=== PATIENT | male | born 1945 | race Caucasian/White ===

== ENCOUNTER 2016-09-01 08:25 | Emergency (ER) | payer OTHER, MEDICARE ==
--- NOTE | 2016-09-01 08:59 | PDOC ---
Gen Adult / Medical Screen HPI - General Chief Complaint: General Medical Stated Complaint: Vomiting Date Seen by Provider: 09/01/16 Time Seen by Provider: 08:54 Source: POSITIVE: Patient, Spouse Exam Limitations: POSITIVE: No limitations Nurse's Notes Reviewed & Considered: Yes - Indicators Temperature Between 95 and 101 Degrees: Yes Respirations Between 12 and 20: Yes Blood Pressure Between 100-165 (sys) and 60-100 (fatima): Yes Pulse Range Between 60-105 (100 for age > 60 years): No (45 bpm) Severe Pain (Greater than 5/10 Reported): No Chest or Abdominal Pain: Yes (crampy abd pain and chest discomfort) Inability to Walk: No Pt Reports Active High Risk Cond. (TB/Hepatitis/HIV/Chemo): No Abnormal Mental Status: No - History of Present Illness Initial Comments: Patient comes in today with chief complaint of vomiting, back pain, and chest. Patient had back surgery on August 23 in [facility] at the [facility], now with chest discomfort that he describes as though his heart is not beating as though there is a void in his chest. Also with episode of vomiting this morning, and decreased appetite since his surgery. He has had 3 bowel movements since August 23, but no blood in his stool. He does have shortness of breath. He denies any headache, sore throat, no chest pain except the above-noted sensation, no fever or chills or sweats, no hematuria or dysuria. He is having back pain that he states is not unusual for back surgery. He has had 2 previous back surgeries. Body Location Affected: REPORTS: Chest, Abdomen, Back Timing: REPORTS: Constant Duration: >1 week Similar Symptoms Previously: Yes Recent Care Received: REPORTS: Treated by MD, Hospitalized Any Prior Injuries Related to Current Complaint?: No - Patient Home Medications Home Medications: Home Medications Gabapentin [Neurontin] 600 mg ORAL TID #0 capsule 04/21/12 Aspirin [Aspir 81] 81 mg ORAL QD tab 01/31/14 Omeprazole 1 cap ORAL QD #90 capsule 10/25/15 Atenolol 0.5 tab ORAL QD #45 tab 04/15/16 Clopidogrel Bisulfate [Plavix] 75 mg PO DAILY #90 tab 05/07/16 Lovastatin 1 tab PO QD #90 tab 07/15/16 Tamsulosin HCl 0.4 mg PO DAILY #90 cap 07/15/16 Aspirin 81 mg PO DAILY 09/01/16 HYDROcodone/APAP 5/325 Tab [Hardin 5/325 Tab] 1 - 2 tab PO Q4H PRN 09/01/16 Tizanidine HCl [Zanaflex] 1 tab PO Q4H PRN 09/01/16 - Patient Allergies Allergies/Adverse Reactions: Allergies Allergy/AdvReac Type Severity Reaction Status Date / Time duloxetine HCl Allergy Intermediate mouth Verified 09/01/16 09:50 [From Cymbalta] blisters Past Medical History - heen HEENT History: Denies History Cardiovascular History: Hypertension, Arrhythmia, Hyperlipidemia Additional Cardiovasular History: STENT PLACED, HEART ATTACK 2 YEARS AGO Respiratory History: Denies History Gastrointestinal History: GERD Additional Gastrointestinal History: BARRETTS ESOPHAGUS, UMBILICAL HERNIA Genitourinary History: Other (please comment) Additional Genitourinary History: prostrate Endocrine History: Denies History Musculoskeletal History: Arthritis, Back Pain Prosthesis or Implant: Yes (LEFT TKA 2004, NECK AND LOWER BACK) Additional Musculoskeletal History: FUSIONS X 2 Neurological History: Denies History Blood Disorders: Denies History Psychiatric History: Denies History History of Sexually Transmitted Diseases: No Cancer History: Skin History of MDRO: No History of Other Communicable Diseases: No Alcohol Use: None Substance Use Type: None Previous Surgical History: Yes Type / Date of Surgery: CORONARY STENT 11/2013- LEFT TKA- C5-6 FUSION, LEFT CTR Anesthesia Reactions: No Malignant Hyperthermia: No Significant Family History: Heart disease ROS - Limitations ROS Limitations: No Limitations Constitution: REPORTS: Denies Symptoms Cardiovascular: REPORTS: Chest Pain, Heart Palpitations Respiratory: REPORTS: Shortness Of Breath Neurological: REPORTS: Denies Neuro Symptoms Gastrointestinal: REPORTS: Abdominal Pain, Nausea, Vomitting, Constipation Endocrine: REPORTS: Denies Symptoms Musculoskeletal: REPORTS: Back Pain Genitourinary: REPORTS: Denies Symptoms Eyes: REPORTS: Denies Symptoms ENT: REPORTS: Denies Symptoms Skin: REPORTS: Denies Skin Symptoms Lympathic: REPORTS: Denies Lympathic Symptoms Immunologic: POSITIVE: Denies Symptoms Psychiatric: POSITIVE: Denies Psych Symptoms Gen Adult/Medical Screen Exam - General Appearance General Appearance: POSITIVE: Alert - HEENT HEENT: POSITIVE: Head Inspection Nml, Eyes Inspection Nml, Ears Inspection Nml, Nose Inspection Nml, PERRL, EOMI - Pupils Pupil Size: 4 mm: Bilateral - Neck Neck: POSITIVE: Normal Inspection - Respiratory Respiratory: POSITIVE: No Respiratory Distress - Cardiovascular Cardiovascular: POSITIVE: No Murmur, No Gallop, PMI Normal, Bradycardia - Abdomen Abdomen: Soft: (All Quadrants), Normal Bowel Sounds: (All Quadrants), Denies Tenderness: (All Quadrants) - Back Back: POSITIVE: Lumbosacral Tenderness (S/P lumbar spinal fusion.) - Neurological / Psychological Mental Status: POSITIVE: Mood Normal, Affect Normal Orientation: POSITIVE: Oriented x 3 - Skin Skin: POSITIVE: Normal Color, Warm, Dry, No Rash - Extremities Extremity: Non-Tender: (All Extremities), Normal ROM: (All Extremities), Normal Inspection: (All Extremities) Gen Adlt/Medical Scrn Progress - Results Reviewed by me Xrays/CTs/US Reviewed by me: Yes Discussed with Radiologist: Yes Lab Results Reviewed: Yes Lab Results:: Laboratory Results 09/01/16 Range/Units 09:10 WBC 6.53 (4.8-10.8) 10^3/uL RBC 3.23 L (4.70-6.10) 10^6/uL Hgb 10.0 L (14.0-18.0) g/dL Hct 30.8 L (42.0-52.0) % MCV 95.4 H (80-90) FL MCH 31.0 (27-31) PG MCHC 32.5 L (33-37) g/dL RDW Std Deviation 44.1 (39-50) fL RDW Coeff of Gabi 13.4 (11.5-14.5) % Plt Count 261 (140-350) 10*3/uL MPV 9.4 (7.4-12.2) FL Immature Gran % (Auto) 0.5 (0-5) % Neut % (Auto) 74.8 (50-80) % Lymph % (Auto) 13.0 (10-50) % [place] % (Auto) 7.8 (5-15) % Eos % (Auto) 3.7 (0-8) % Baso % (Auto) 0.2 (0-1) % Immature Gran # (Auto) 0.03 10*3/UL Neut # (Auto) 4.89 10*3/UL Lymph # (Auto) 0.85 10*3/uL [place] # (Auto) 0.51 (0.3-0.8) 10*3/UL Eos # (Auto) 0.24 10*3/UL Baso # (Auto) 0.01 10*3/UL WBC Morphology Comment Normal morphology (NORM) Plt Morphology Comment Normal morphology (NORM) RBC Morph Comment Normal morphology (NORM) D-Dimer 3.36 H (0.00-0.59) mg/L Sodium 137 (135-145) meq/L Potassium 3.9 (3.8-5.2) meq/L Chloride 102 (98-112) meq/L Carbon Dioxide 25 (23-33) meq/L Anion Gap 10 (5-20) BUN 14 (7-22) mg/dL Creatinine 0.9 (0.70-1.50) mg/dL Estimated GFR (>60 ml/min/1.73m(2)) BUN/Creatinine Ratio 15.55 (6-20) Glucose 111 H (78-110) mg/dL Calculated Osmolality 285.0 (267-292) mOsm/kg Calcium 8.9 (8.7-10.7) mg/dL Magnesium 2.1 (1.6-2.4) mg/dL Total Bilirubin 0.9 (0.3-1.2) mg/dL AST 34 (21-57) IU/L ALT 49 (21-72) IU/L Alkaline Phosphatase 75 (38-126) IU/L Troponin I < 0.012 (< 0.040) ng/mL Total Protein 6.7 (6.1-8.0) g/dL Albumin 3.7 (3.5-4.8) g/dL Globulin 3.0 (2.50-4.10) g/dL Albumin/Globulin Ratio 1.20 L (1.3-2.0) mg/g EKG Interpreted/Reviewed By Me:: Yes EKG Interpretation:: POSITIVE: Normal Sinus Rhythm - Patient's Progress Pain Medication Addressed: POSITIVE: Yes Re-Examine Time: 14:07 (pain free, nausea improved.) Status: POSITIVE: Improved MDM / ED Course: Patient was brought to the emergency Department, examined, an IV was started with blood drawn and sent to the lab for studies, radiographic studies obtained. Patient received a liter of normal saline, morphine, Zofran and his pain resolved and his nausea improved. Laboratory findings: D-dimer elevated at greater than 3. CBC shows a normal white count. CT scan shows no pulmonary embolism Assessment: Chest pain with normal enzymes and EKG, nausea. Plan: Discharge home clear liquids for 24 hours, advance diet as tolerated follow up Friday with cardiology. Return to emergency department if return of symptoms. - Consult Counseled: POSITIVE: Patient, Family, RE: Lab Results, RE: Radiology Results, RE : DX, RE: Need for F/U Patient Care Time - Estimated PCT Patient Care Time (In Minutes): 60 Vital Signs - Recent Vital Signs Vital Signs: Vital Signs (Last 8 hours) Temp Pulse Pulse Resp BP Pulse Ox 09/01/16 11:03 55 L 15 128/71 96 09/01/16 08:32 47 L 09/01/16 08:25 96.6 F L 45 L 17 115/70 93 - VS Reviewed Vital Signs Reviewed: Yes Discharge Clinical Impression: Chest pain, Nausea Discharge Disposition: Discharged to Home Condition: Stable Patient Instructions Given at Discharge: Chest Pain (ED), Acute Nausea and Vomiting (ED)
[2016-09-01 09:00] VITALS: TEMP 96.6
--- NOTE | 2016-09-01 09:03 | EKG ---
[address] [place] [address] Measurements Intervals [place] Rate: 47 P: 32 PA: 192 QRS: -37 QRSD: 129 T: 30 QT: 451 QTc: 415 Interpretive Statements SINUS BRADYCARDIA LEFT AXIS DEVIATION INTRAVENTRICULAR CONDUCTION DELAY Compared to ECG 08/15/2016 15:49:40 Left-axis deviation now present Intraventricular conduction delay now present First degree AV block no longer present Incomplete right bundle-branch block no longer present Left anterior fascicular block no longer present Electronically Signed On 09-01-16 12:15:27 [facility] by Piero Chang [email or web address]
[2016-09-01] MEDS: Sodium Chloride 0.9% 1,000 ML PRIMARY IV ONE (09:10)
[2016-09-01] MEDS: ONDANSETRON 4 MG/2 ML VIAL IVP ONE (09:11)
[2016-09-01] MEDS: MORPHINE SULFATE 2 MG/1 ML IVP ONE (09:13)
[2016-09-01 09:21] LABS: BASOPHILS # (AUTO) 0.01 10*3/UL; BASOPHILS % (AUTO) 0.2 % (0-1); EOSINOPHILS % (AUTO) 3.7 % (0-8); HEMATOCRIT 30.8 % (42.0-52.0); IMM GRAN % (AUTO) 0.5 % (0-5); IMM GRAN# (AUTO) 0.03 10*3/UL; LYMPHOCYTES # (AUTO) 0.85 10*3/uL; MEAN CORPUSCULAR HGB CONC 32.5 g/dL (33-37); MEAN PLATELET VOLUME 9.4 FL (7.4-12.2); MONOCYTES # (AUTO) 0.51 10*3/UL (0.3-0.8); MONOCYTES % (AUTO) 7.8 % (5-15); NEUTROPHILS # (AUTO) 4.89 10*3/UL; NEUTROPHILS % (AUTO) 74.8 % (50-80); RDW COEFFICIENT OF VARIATION 13.4 % (11.5-14.5); RED BLOOD COUNT 3.23 10^6/uL (4.70-6.10); WHITE BLOOD COUNT 6.53 10^3/uL (4.8-10.8)
[2016-09-01 09:24] LABS: PLATELET MORPHOLOGY COMMENT NORMAL MORPHOLOGY (NORM)
[2016-09-01 09:31] LABS: BILIRUBIN,TOTAL 0.9 mg/dL (0.3-1.2); BUN/CREATININE RATIO 15.55 (6-20); CALCIUM 8.9 mg/dL (8.7-10.7); CREATININE 0.9 mg/dL (0.70-1.50); MAGNESIUM 2.1 mg/dL (1.6-2.4); POTASSIUM 3.9 meq/L (3.8-5.2); TOTAL PROTEIN 6.7 g/dL (6.1-8.0)
--- NOTE | 2016-09-01 10:13 | DI ---
HISTORY: Chest pain with vomiting. Patient had spinal surgery on 08/23/2016. COMPARISON: None available. FINDINGS: There is no free air underneath the hemidiaphragms. Multiple clips are project over the a bdomen, and over the spine. The bowel gas pattern is nonspecific. The cardiac silhouette is not enlarged. There is bibasilar atelectasis with prominence of the centra l vasculature. There are several loops of air-filled bowel. There are no air-fluid levels. There is no specific ev idence for obstruction. IMPRESSION: 1. No evidence of acute intra-abdominal nor cardiopulmonary pathology.
[2016-09-01 11:04] VITALS: RESP 15
--- NOTE | 2016-09-01 13:09 | DI ---
HISTORY: Dyspnea with elevated d-dimer. Back surgery on 08/23/2016. COMPARISON: None available. TECHNIQUE: Standard CT pulmonary angiogram axial and coronal reformatted images from the level the a ortic arch through the dome of the diaphragm with maximal contrast opacification of the pulmonary art eries. 423 images. FINDINGS: No evidence of acute pulmonary artery embolus identified. No thoracic aortic aneurysm or dissection present. The heart and pericardium are unremarkable. Mild aortic atherosclerotic calcifi cations present. No suspicious mediastinal or hilar lymphadenopathy identified. There is mild bilateral dependent atelectasis. The lungs are otherwise clear with no focal airspace opacities or pneumothorax. No pleural effusions present. Proximal airways are clear with no evident thickening or bronchiectasis. Gallbladder is absent. The visualized abdominal organs are unremarkable. The osseous structures are unremarkable without fracture. IMPRESSION: 1. No evidence of acute pulmonary embolus. 2. No acute pathology. HISTORY: The above report was sent to Paul in the ER Department on 09/01/2016 at 03:15 PM EST.
== END 2016-09-01 15:00 | disposition home or self-care (01) ==
LOC: ER 08:25
DX: R07.9 Chest pain, unspecified (principal); R11.2 Nausea with vomiting, unspecified; R06.02 Shortness of breath; Z98.890 Other specified postprocedural states
CPT/HCPCS: 71275; 74022; 80053; 83735; 84484; 85025; 85379; 93005; 93010; 96374; 96375; 99284; J2270; J2405; J7030

== ENCOUNTER → 2016-10-02 | Outpatient (CLI) | payer OTHER, MEDICARE | LOC: MMPC 10:00 | PROVIDERS: ATTEND Podiatrist Foot & Ankle Surgery | DX: L84 Corns and callosities (principal); L60.3 Nail dystrophy; M48.06 Spinal stenosis, lumbar region | CPT/HCPCS: 11055 ×2; G0463 ==

== ENCOUNTER → 2017-01-02 | Outpatient (CLI) | payer OTHER, MEDICARE | LOC: MMPC 10:00 | PROVIDERS: ATTEND Podiatrist Foot & Ankle Surgery | DX: M79.674 Pain in right toe(s) (principal); M79.675 Pain in left toe(s); L60.3 Nail dystrophy; G57.61 Lesion of plantar nerve, right lower limb | CPT/HCPCS: 11721 ×2; 99212; G0463 ==

== ENCOUNTER → 2017-01-29 | Outpatient (CLI) | payer OTHER, MEDICARE | LOC: MMPC 10:00 | PROVIDERS: ATTEND Podiatrist Foot & Ankle Surgery | DX: K59.03 Drug induced constipation (principal); E78.5 Hyperlipidemia, unspecified; R00.2 Palpitations; I25.10 Atherosclerotic heart disease of native coronary artery without angina pectoris; N40.1 Benign prostatic hyperplasia with lower urinary tract symptoms | CPT/HCPCS: 64455 ×2; 99214; G0463 ×2; J0702 ==

== ENCOUNTER → 2017-04-16 | Outpatient (CLI) | payer OTHER, MEDICARE ==
--- NOTE | 2017-04-17 09:32 | DI ---
History: Right foot pain Comparison: February 28, 2016. Findings: No fracture No malalignment Mild degenerative changes at the first tarsal metatarsal joint. There is a subtle defect in the lateral aspect of the base of the proximal phalanx, great toe. This i s seen on oblique image only and may be an incidental finding, but could represent a small erosive le jackelyn, possibly associated with gout or Impression No acute injury Mild degenerative changes first tarsometatarsal joint Small subtle defect in the lateral aspect of base of the proximal phalanx, great toe. This may be an incidental finding, but clinical and laboratory correlation is recommended to rule out the possibili ty of gout
--- NOTE | 2017-04-23 08:56 | DI ---
LEFT FOOT, 04/16/2017 4:19 PM: Clinical History: Left foot pain. Previous Exam: 02/28/2016. 3 weightbearing views are submitted. There is no acute soft tissue, osseous, or joint abnormality. Th e patient is status post osteotomy of the distal head of the proximal phalanx of the second toe with placement of a threaded metallic pin. This joint may actually be fused. Joint space narrowing is pres ent at the second metatarsophalangeal joint space and this is unchanged from the prior exam. Reading: Status post osteotomy of the distal head of the proximal phalanx of the second toe. The PIP joint of the second toe may be fused. Arthritic changes are present in the second metatarsophalangeal joint sp rodri.
== END ==
LOC: MOB RAD 16:22
PROVIDERS: ATTEND Podiatrist Foot & Ankle Surgery
DX: M79.672 Pain in left foot (principal); M79.671 Pain in right foot; M19.072 Primary osteoarthritis, left ankle and foot; M19.071 Primary osteoarthritis, right ankle and foot; G57.62 Lesion of plantar nerve, left lower limb; M21.272 Flexion deformity, left ankle and toes; M24.575 Contracture, left foot
CPT/HCPCS: 20553 ×2; 73630 ×2; 99213; G0463; J0702